=== PATIENT | female | born 1990 | race Two or more races ===

== ENCOUNTER 2017-11-16 03:50 | Emergency (ER) | payer OTHER ==
[~2017-11-16] VITALS: Ht 162.6 cm; Wt 99.8 kg
[~2017-11-16 03:50] MED LIST: CIPRO500 MG PO; DICLOFENAC SODI50 MG PO; KETO10TA2 PO; TAMS0.4C PO
[2017-11-16] MEDS ORDERED: FLONASE ALLERG9.9 ML NASAL (06:59)
[2017-11-16] MEDS ORDERED: ZITHROMAX500 MG PO (06:59)
== END 2017-11-16 07:22 | disposition home or self-care (01) ==
LOC: ER 03:50
DX: J32.8 Other chronic sinusitis (principal); J11.1 Influenza due to unidentified influenza virus with other respiratory manifestations

== ENCOUNTER 2024-05-21 07:30 | Inpatient (IN) | payer OTHER ==
[~2024-05-21] VITALS: Ht 162.6 cm; Wt 106.1 kg
[~2024-05-21 07:30] MED LIST changes: +FLONASE ALLERG9.9 ML NASAL; +ZITHROMAX500 MG PO
[2024-05-21] MEDS ORDERED: LEXAPRO5 MG PO (09:13)
[2024-05-21] MEDS ORDERED: AMLODIPINE-BEN1 EAC3 PO (09:14)
[2024-05-21] MEDS ORDERED: TOPROL XL100 M1 PO (09:14)
[2024-05-21] MEDS ORDERED: VITAMIN D250 MC1 PO (09:15)
[2024-05-21] MEDS ORDERED: CITRACAL + D M1 EACH PO (09:15)
[2024-05-21 09:20] LABS: URINE APPEARANCE Clear; URINE BILIRRUBIN Negative (NEGATIVE); URINE BLOOD Negative; URINE COLOR Yellow; URINE GLUCOSE Negative (NEGATIVE); URINE KETONE Negative (NEGATIVE); URINE LEUKOCYTE Negative; URINE NITRATE Negative; URINE PROTEIN Negative (NEGATIVE); URINE UROBILINOGEN 0.2 E.U./dl
[2024-05-21 09:22] LABS: HEMATOCRIT 36.6 % (36.0-45.00); HEMOGLOBIN 12.6 g/dL (12.0-15.00); MEAN CELL VOLUME 88.5 fL (80.00-100.00); MEAN CORPUSCULAR HEMOGLOBIN 30.5 pg (27.00-32.0); MEAN CORPUSCULAR HGB CONC 34.5 g/dl (32.0-36.0); PLATELET COUNT 326 K/uL (150-450); RED BLOOD COUNT 4.13 M/uL (4.00-6.00)
[2024-05-21 09:25] LABS: URINE EPITHELIAL CELLS 7.4 uL (0.0-38.8); URINE RBC 5.8 uL (0.0-20.8); URINE WBC 3.5 uL (0.0-23.2)
[2024-05-21 09:38] LABS: URINE CAST 0.15 uL (0.0-1.40)
[2024-05-21 09:50] LABS: INR 1.02; PARTIAL THROMBOPLASTIN TIME 30.3 SECONDS (22.0-34.0)
[2024-05-21 09:54] LABS: PROTHROMBIN TIME 10.7 SECONDS (9.0-11.5)
[2024-05-21 10:03] LABS: ALBUMIN 3.9 gm/dL (3.4-5.0); BILIRUBIN TOTAL 0.54 mg/dL (0.3-1.2); CALCIUM 9.8 mg/dL (8.5-10.1); CREATININE SERUM 0.67 mg/dL (0.55-1.02); GFR 100.16; GLOBULINA 3.8 G/DL (2.4-3.5); POTASSIUM 4.33 mEq/L (3.5-5.1); TOTAL PROTEIN 7.7 gm/dL (6.4-8.2)
[2024-05-24] MEDS ORDERED: CEFAZOLIN SODIUM 1,000 MG VIAL ONE (07:00)
[2024-05-24] MEDS ORDERED: DEXAMETHASONE SODIUM PHOSPHATE 4 MG/ML VIAL ONE (07:08)
[2024-05-24] MEDS ORDERED: PHENOL 177 ML BOTTLE MM PRN (10:12)
[2024-05-24] MEDS ORDERED: TRAMADOL HCL 50 MG TABLET PO SCH (12:00)
[2024-05-24] MEDS ORDERED: ENALAPRILAT DIHYDRATE 1.25 MG/ML VIAL IV PRN (12:00)
[2024-05-24] MEDS ORDERED: ONDANSETRON HCL 2 MG/ML VIAL IV PRN (12:00)
[2024-05-24] MEDS ORDERED: ACETAMINOPHEN 500 MG GEL..CAP PO SCH (13:00)
[2024-05-24] MEDS ORDERED: CALCITRIOL 0.5 MCG CAPSULE PO NR (17:00)
[2024-05-24] MEDS ORDERED: CYCLOBENZAPRINE HCL 5 MG TABLET PO SCH (17:00)
[2024-05-24] MEDS ORDERED: Calcium Carbonate 1 TAB TABLET PO SCH ×2 (17:00→21:00)
[2024-05-25] MEDS ORDERED: LEVOTHYROXINE SODIUM 150 MCG TABLET PO SCH (06:00)
[2024-05-25] MEDS ORDERED: AMLODIPINE BESYLATE 5 MG TABLET PO SCH (09:00)
[2024-05-25] MEDS ORDERED: METOPROLOL SUCCINATE 100 MG TAB.SR.24H PO SCH (09:00)
[2024-05-25] MEDS ORDERED: DIPHENHYDRAMINE HCL 150 MG,MAG HYDROX/ALUMINUM HYD/SIMETH 60 ML,LIDOCAINE HCL 60 ML PO PRN (13:00)
[2024-05-25] MEDS ORDERED: CALCITRIOL 0.5 MCG CAPSULE PO SCH (17:00)
== END 2024-05-25 23:27 | disposition home or self-care (01) | DRG 627 ==
LOC: SURH 05-24 05:35 → O/R 05-24 05:35 → SURH 05-24 07:30
PROVIDERS: ADMIT Surgery; ATTEND Surgery
PROC: 0GTH4ZZ Resection of Right Thyroid Gland Lobe, Percutaneous Endoscopic Approach (ICD-10-PCS; principal; 2024-05-24 08:15)
DX: C73 Malignant neoplasm of thyroid gland (principal); Z20.822 Contact with and (suspected) exposure to COVID-19